=== PATIENT | male | born 1980 | race Two or more races ===

== ENCOUNTER → 2023-11-15 | Emergency (ER) | payer OTHER ==
[~2023-11-15] VITALS: Ht 168.9 cm; Wt 77.3 kg
[~2023-11-15] MED LIST: DICLOFENAC SODI75 MG PO; LEVSIN/SL0.125 MG SL; TENORMIN25 MG PO
[2023-11-15 12:57] LABS: HEMATOCRIT 44.4 % (39.0-48.0); HEMOGLOBIN 15.6 g/dL (13-16.00); MEAN CELL VOLUME 82.3 fL (80.0-100.00); MEAN CORPUSCULAR HEMOGLOBIN 28.9 pg (27.00-32.0); MEAN CORPUSCULAR HGB CONC 35.2 g/dl (32.0-36.0); PLATELET COUNT 309 K/uL (150-450); RED CELL DISTRIBUTION WIDTH 13.1 % (11.5-14.5)
[2023-11-15 13:40] LABS: ALBUMIN 3.8 gm/dL (3.4-5.0); ALKALINE PHOSPHATASE 77 U/L (50-136); ALT/SGPT 30 U/L (12-78); AMYLASE 98 U/L (25-115); ANION GAP 9 (10.0-20.0); AST/SGOT 11 U/L (15-37); BILIRUBIN TOTAL 0.46 mg/dL (0.3-1.2); BILIRUBIN,CONJUGATED < 0.10 mg/dL (0.0-0.2); BILIRUBIN,UNCONJUGATED 0.36 mg/dL (0.0-0.6); BLOOD UREA NITROGEN 10 mg/dL (7-18); BUN CREA RATIO 10 (7.0-25.0); CALCIUM 9.5 mg/dL (8.5-10.1); CARBON DIOXIDE 30 mEq/L (21-32); CHLORIDE 108 mmol/L (98-107); GFR 82.34; GLOBULINA 4.1 G/DL (2.4-3.5); GLUCOSE FASTING 86 mg/dL (65-100); LIPASE 54 U/L (13-75); OSMOLALITY SERUM 283 MOSM/KG (275-295); POTASSIUM 4.32 mEq/L (3.5-5.1); SODIUM 143 mmol/L (136-145); TOTAL PROTEIN 7.9 gm/dL (6.4-8.2)
== END | disposition home or self-care (01) ==
LOC: ER 11:06
PROVIDERS: General Practice
DX: R10.9 Unspecified abdominal pain (principal)